=== PATIENT | male | born 2000 | race Caucasian/White ===

== ENCOUNTER 2020-08-30 12:04 | Outpatient (REF) | payer OTHER, SELFPAY ==
[2020-08-30 12:36] LABS: COVID-19 Test Negative (Negative)
== END 2020-08-30 12:05 | disposition home or self-care (01) ==
LOC: HO.LAB 12:04
PROVIDERS: PCP Internal Medicine; Visit Provider Internal Medicine
DX: Z20.828 Contact with and (suspected) exposure to other viral communicable diseases (principal)
CPT/HCPCS: 87635

== ENCOUNTER 2021-10-08 12:29 | Outpatient (REF) | payer OTHER, SELFPAY | END 2021-10-08 12:30 | disposition home or self-care (01) | LOC: HO.LAB 12:29 | PROVIDERS: PCP Internal Medicine; Visit Provider Internal Medicine | DX: Z20.822 Contact with and (suspected) exposure to COVID-19 (principal) | CPT/HCPCS: C9803; U0003; U0005 ==

== ENCOUNTER 2024-03-01 10:39 | Emergency (ER) | payer SELFPAY ==
[2024-03-01 11:25] VITALS: BP 131/63; PULSE 71; RESP 18; TEMP 36.8; O2SAT 100; BMI 24.8
--- NOTE | 2024-03-01 11:27 | ED_ITS ---
HPI - General Adult General Chief complaint: Upper Respiratory Symptoms Stated complaint: Diff breathing Time Seen by Provider: 03/01/24 13:09 Source: patient and RN notes reviewed Mode of arrival: ambulatory Limitations: no limitations History of Present Illness HPI narrative: This is a 23-year-old male, with a history of asthma, who presents emergency department with complaints of shortness of breath, cough, and congestion for the last x 2 days. Patient reports that several weeks ago he was sick with congestion. He states that this resolved however noticed 2 days ago he started develop chest tightness and dry cough. Patient denies any fevers, chills, headaches, palpitations, abdominal pain, nausea, vomiting or diarrhea. He has been using his inhaler at home which has provided him with some relief. He states that his girlfriend as well as his coworkers have also been sick with similar symptoms. No other complaints or concerns at this time. MD complaint: Cough, shortness of breath Onset (ago): day(s) Relieving factors: none Exacerbating factors: none Associated symptoms: cough and shortness of breath Treatments prior to arrival: none Related Data Allergies Allergy/AdvReac Type Severity Reaction Status Date / Time No Known Allergies Allergy Verified 03/01/24 11:27 Review of Systems Review of Systems: Yes all other systems are reviewed and are negative Constitutional: Constitutional: Reports as per [facility] Social History Social History Advance Directives: No Advance Directives Information Provided: No Physical Exam ED Vital Signs: Vital Signs - 24 hr 03/01/24 11:25 Temperature 98.2 F Pulse Rate 71 Respiratory Rate 18 Blood Pressure 131/63 Pulse Oximetry 100 Oxygen Delivery Method Room Air BMI result Body Mass Index 24.8 Const General: cooperative, comfortable and no acute distress Orientation/consciousness: patient oriented x3 Limitations: no limitations HENIN Head: Yes normal to inspection, Yes normocephalic and Yes atraumatic Ears: hearing grossly normal bilaterally and TM's normal bilaterally General nose exam: Normal external nose present Face and sinus: Yes normal facial exam Mouth: Normal oral and palatal mucosa present, oropharynx normal and moist mucous membranes Throat: Yes posterior oropharynx normal, Yes tonsils normal and Yes uvula midline Eyes General: appearance normal, both eyes and all related structures Eyelids: Yes eyelids normal Conjunctivae: conjunctivae normal Sclerae: sclerae normal Pupils: Equal, round and reactive pupils present EOM: EOMs intact bilaterally Neck Neck: Yes normal visual inspection, Yes full ROM and Yes no lymphadenopathy Lymphatic: no lymphadenopathy noted Chest Chest palpation & inspection: normal inspection of the chest Resp Effort & Inspection: normal respiratory effort and able to speak in complete sentences Auscultation: clear to auscultation bilaterally, no crackles, no rales, no rhonchi and no wheezes Cardio Rate: regular rate Rhythm: regular rhythm Heart sounds: S1 normal heart sound present and S2 normal heart sound present GI Inspection: Yes normal to inspection Skin General skin exam: no rashes or lesions noted Trauma: no lacerations or abrasions Wounds: no wounds Neuro General: patient oriented x3 and moves all extremities Cranial nerves: Yes Equal, round and reactive pupils present Extrem General: Yes normal to inspection Right upper extremity: normal to inspection Left upper extremity: normal to inspection Right lower extremity: normal to inspection Left lower extremity: normal to inspection Course Course Course Narrative: RME- 23-year-old male with no significant past medical history presents for evaluation of ?shortness of breath and a cold. ? Patient reports his symptoms started a few days ago. He reports that he had what he thought was a virus about 1 week 10 days ago which has improved. He reports ?there is something going around work. ? He is well-appearing, vital signs are stable, lungs are clear to auscultation. Plan for viral swabs. Medical Decision Making Medical Decision Making [facility] Narrative: This is a 23-year-old male, with a history of asthma, who presents emergency department with complaints of cough, intermittent shortness of breath and chest tightness for the last 2 days. On arrival, vital signs within normal limits. He is speaking in full sentences under no acute respiratory distress. Lungs clear to auscultation bilaterally. Frequent dry cough heard during examination. Differential diagnoses include viral syndrome, flu, COVID, pneumonia. Patient tested positive for RSV. Given patient clear lungs, normal oxygen saturation, under no acute respiratory distress, defer a x-ray at this time. Patient given return precautions. He understands and agrees with plan. Patient stable for discharge. Differential Diagnosis Differential Diagnoses: The differential diagnosis associated with the presentation includes See above Admission/Observation Consideration of admission/observation: Escalation of care including admission/observation considered Escalation of care including admission/observation considered however given workup today not warranted at this time. Lab Data [facility] Lab Attestation statement: I reviewed the patient's lab results. Labs: Lab Results 03/01/24 Range/Units 12:42 Influenza Type A (PCR) NEGATIVE (Negative) Influenza Type B (PCR) NEGATIVE (Negative) RSV RNA Qual (PCR) POSITIVE A (Negative) SARS-CoV-2 RNA (RT-PCR) NEGATIVE (Negative) Discharge Plan Discharge Clinical Impression: Respiratory syncytial virus (RSV) Patient Disposition: Home, Self-Care Instructions: Respiratory Syncytial Virus (ED) Additional Instructions: Your seen in the emergency department due to cough, and shortness breath. You tested positive for RSV. This is a virus that does not require any antibiotics. Drink plenty of fluids and get plenty of rest. Continue using your inhaler as directed as needed for shortness of breath. If any new or worsening symptoms occur including but not limited to worsening shortness breath, chest pain, please return for re-evaluation. Stand Alone Forms: Work/School Release Print Language: [place]
[2024-03-01 13:26] LABS: Influenza A PCR NEGATIVE (Negative); Influenza B PCR NEGATIVE (Negative); Resp Syncy Virus RNA Qual PCR POSITIVE (Negative); SARS COV2 PCR INHOUSE NEGATIVE (Negative)
[2024-03-01 14:19] VITALS: BP 131/63; PULSE 71; RESP 18; TEMP 36.8; O2SAT 100
== END 2024-03-01 14:20 | disposition home or self-care (01) ==
PROVIDERS: Physician Assistant; Emergency Provider Emergency Medicine
DX: R06.02 Shortness of breath (principal); B97.4 Respiratory syncytial virus as the cause of diseases classified elsewhere; J45.909 Unspecified asthma, uncomplicated
CPT/HCPCS: 0241U; 99282; 99283